=== PATIENT | female | born 2000 | race Two or more races ===

== ENCOUNTER 2020-01-06 03:03 | Emergency (ER) | payer MEDICAID, OTHER, SELFPAY ==
[~2020-01-06] VITALS: Ht 154.9 cm; Wt 86.5 kg
[2020-01-06 03:11] VITALS: BP 133/92
[2020-01-06] MEDS ORDERED: METHOCARBAMOL 750 MG TABLET PO ONE (04:00)
[2020-01-06] MEDS ORDERED: hydrOXyzine 50MG TABLET PO ONE (04:00)
[2020-01-06] MEDS ORDERED: hydrOXyzine 50MG TABLET ONE (04:49)
[2020-01-06] MEDS ORDERED: METHOCARBAMOL 750 MG TABLET ONE (04:49)
== END 2020-01-06 05:09 | disposition home or self-care (01) ==
LOC: ED 04:40
DX: F41.1 Generalized anxiety disorder (principal); R20.0 Anesthesia of skin
CPT/HCPCS: 99283